=== PATIENT | male | born 1990 | race African-American/Black ===

== ENCOUNTER 2023-05-18 14:44 | Emergency (ER) | payer SELFPAY ==
[~2023-05-18] VITALS: Ht 180.3 cm; Wt 108.0 kg
[2023-05-18 14:46] VITALS: TEMP 98.4
[2023-05-18] MEDS ORDERED: PERTUSS(ACELL),DIPH,TET VAC/PF 0.5 ML SYRINGE IM. ONE (16:45)
[2023-05-18] MEDS ORDERED: IBUPROFEN 600 MG TABLET PO ONE (16:45)
[2023-05-18] MEDS ORDERED: LIDOCAINE 5% TRANSDERMAL PATCH TD ONE (16:45)
[2023-05-18] MEDS ORDERED: IBUP-1492 PO (18:54)
[2023-05-18] MEDS ORDERED: LIDO700A15 TP (18:54)
[2023-05-18] MEDS ORDERED: BACL10TA PO (18:55)
[2023-05-18 19:00] VITALS: BP 132/60; PULSE 72; RESP 16
== END 2023-05-18 21:14 | disposition home or self-care (01) ==
LOC: EMS 14:48
DX: S50.311A Abrasion of right elbow, initial encounter (principal); V89.2XXA Person injured in unspecified motor-vehicle accident, traffic, initial encounter; Y93.89 Activity, other specified; Y92.89 Other specified places as the place of occurrence of the external cause; Y99.8 Other external cause status
CPT/HCPCS: 72100; 90471; 90715; 99284